=== PATIENT | female | born 1945 | race Caucasian/White ===

== ENCOUNTER → 2018-03-14 | Outpatient (CLI) | payer OTHER | END | disposition home or self-care (01) | LOC: TOM 03-08 09:30 | DX: C67.9 Malignant neoplasm of bladder, unspecified (principal) | CPT/HCPCS: 74178; Q9965 ==

== ENCOUNTER 2024-08-25 06:50 | Outpatient (CLI) | payer OTHER | END 2024-08-25 07:15 | disposition home or self-care (01) | LOC: TOM 06:50 | PROVIDERS: ATTEND Urology | DX: R31.1 Benign essential microscopic hematuria (principal) | CPT/HCPCS: 74178; Q9965 ==